=== PATIENT | male | born 1955 | race American Indian/Alaskan Native ===

== ENCOUNTER 2017-11-07 11:40 | Day surgery (SDC) | payer MEDICAID ==
[2017-11-07] MEDS ORDERED: WATER FOR IRRIG STERILE IR ONE (14:44)
--- NOTE | 2017-11-07 14:46 | Anesthesia Consultation ---
Anesthesia Consult and Med Hx Date of service: 11/07/17 - Airway Anesthetic Teeth Evaluation: Poor (braces) ROM Head & Neck: Adequate Mental/Hyoid Distance: Adequate Mallampati Class: Class III Intubation Access Assessment: Possibly Difficult - Pulmonary Exam CTA: Yes - Cardiac Exam Cardiac Exam: RRR - Pre-Operative Health Status ASA Pre-Surgery Classification: ASA3 Proposed Anesthetic Plan: MAC - Pre-Anesthesia Comment Pre-Anesthesia Comments: sacral wound stage 4, MRSA. Parkinsons, Dysphagia, encephalopathy - Cardiovascular System Hx Hypertension: Yes Hx Peripheral Vascular Disease: Yes (DVTs ) - Central Nervous System CVA: Yes
--- NOTE | 2017-11-07 14:48 | Anesthesia Day of Surgery ---
Anesthesia Day of Surgery - Day of Surgery Patient Examined: Yes Patient H&P Reviewed: Yes Patient is NPO: Yes Beta Blockers: Yes
[2017-11-07] MEDS ORDERED: DIPRIVAN 10 MG/ML IV ONE (14:50)
[2017-11-07] MEDS ORDERED: TRIPLE ANTIBIOTIC TP ONE (14:58)
[2017-11-07] MEDS ORDERED: ANCEF/STERILE WATER 2 GM/20 ML 2 GM/20 ML SYRINGE IV NR (15:00)
[2017-11-07] MEDS ORDERED: ANCEF/STERILE WATER 2 GM/20 ML 2 GM/20 ML SYRINGE IV ONE (15:00)
--- NOTE | 2017-11-07 15:46 | Operative Report ---
Operative Report Operative Report: Operative Report: Date of procedure: 11/07/2017 Procedure: Esophagogastroduodenoscopy with percutaneous endoscopic gastrostomy tube placement. Attending physician: Wojciech Curry MD Risk Control Field Representative: Wojciech Curry MD Indication: Patient is an 62-year-old male who presented with a history of altered mental status poor oral intake and weight loss. Patient is severely malnourished. An upper endoscopy is done to place a percutaneous endoscopic gastrostomy tube for enteral feeding and administration of medications. Consent: Informed consent was obtained after advising the patient and family regarding nature of this procedure, its indications, potential benefits as well as possible complications including but not limited to bleeding perforation and adverse reaction to medication, infection as well as other cardiopulmonary complications. An informed written and verbal consent was then obtained after due opportunity was provided for questions and answers. Monitoring: Patient was monitored continuously with pulse oximetry and electrocardiographic recordings as well as blood pressure recordings. Vital signs remained stable throughout this procedure with no untoward events. Preoperative assessment: Patient was assessed immediately prior to this procedure for capacity to tolerate monitored anesthesia care and moderate sedation as well as general anesthesia. Patient's ASA classification is 3, Mallampati class is 2, Hyomental distance is 3. Instrument: [employer] video endoscope. 20 [place] percutaneous endoscopic gastrostomy tube kit Medications: Propofol given intravenously in divided doses. For details please refer to anesthesia records. Ancef 2 g given intravenously immediately prior to beginning of procedure 1% lidocaine for local infiltration of the skin. Description of procedure: Patient was placed in a supine position after achieving sedation, the endoscope was introduced into the esophagus under direct vision. It was then advanced beyond the esophagus into the stomach and then beyond the stomach into the duodenum and to the second portion of the duodenum. It was subsequently withdrawn with careful inspection of all mucosal surfaces with the following findings. Subsequently, a precise location for the placement of the percutaneous endoscopic gastrostomy tube was identified using direct light transillumination and one-to-one finger indentation. Following this, a 20 [place] percutaneous endoscopic gastrostomy tube was successfully placed using the Ponsky pull-through method. The following endoscopic findings were noted. Findings: Esophagus was normal. There was mild erythema in the gastric antrum. A 20 [place] percutaneous endoscopic gastrostomy tube was successfully placed. The duodenum was normal to the second portion. Impression: Esophagogastroduodenoscopy with successful placement of a 20 [place] percutaneous endoscopic gastrostomy tube. Plan: The tube site is currently at 2 cm. It should be cleaned daily with Betadine and peroxide. Triple Antibiotic should be applied daily to the site with dry gauze dressing a for at least 2-3 weeks. The tube site should be carefully inspected daily for any redness or discharge. The tube should be flushed with 100 mL of water every 6 hours. The tube should also be flushed additionally after administration medications or after completing a feeding session. Tube may be used for enteral feeding after 6 hours. The tube however may be used immediately for administration of medications. If the tube is accidentally dislodged, a environmental scientist should be notified immediately. After 6 hours, the tube may be used for enteral feeding. The advice however and recommendation is to begin tube feeding at a slow rate of 30 mL per hour and gradually increase as may be instructed after 8 hours. Residuals from the feeding tube should be checked every 3 hours for at least 24-36 hours. If patient tolerates feeding, his feeding volume should be optimized as may advised by the dietitian. If patient has high residuals, then caution should be used in increasing the feeding rate to avoid aspiration. The head of the bed should be kept at 30 always.
--- NOTE | 2017-11-07 15:47 | Discharge Summary ---
Short Stay Discharge Plan Activity: fall precautions Weight Bearing Status: Non-Weight Bearing (See post Peg placement orders) Follow up with: EDUARDO PERALTA MD [Primary Care Provider] - 7 Days
[2017-11-07 17:03] VITALS: BP 120/84
== END 2017-11-07 11:41 | disposition home or self-care (01) ==
LOC: GIO 11:40 → EDBD 13:00
PROVIDERS: ATTEND Internal Medicine Gastroenterology
DX: G93.40 Encephalopathy, unspecified (principal); F32.9 Major depressive disorder, single episode, unspecified; I10 Essential (primary) hypertension; E78.5 Hyperlipidemia, unspecified; G20 Parkinson's disease; I73.9 Peripheral vascular disease, unspecified; Z86.718 Personal history of other venous thrombosis and embolism; Z79.01 Long term (current) use of anticoagulants; Z86.73 Personal history of transient ischemic attack (TIA), and cerebral infarction without residual deficits
CPT/HCPCS: 43246; J0690; J2704; A6250